=== PATIENT | male | born 1940 | race Caucasian/White ===

== ENCOUNTER → 2016-10-17 | Outpatient (CLI) | payer BC ==
[~2016-10-17] MED LIST: ADVIN50050 INH; ASPEC81 PO; ATOR-22 PO; AVD5 PO; CMBIN INH; CTP2 PO; LSX20 PO; METO50TA7 PO; SODI1TAB PO; TERA1CAP63 PO
--- NOTE | 2016-10-17 10:41 | DIAGNOSTIC IMAGING REPORT ---
CHEST CT WITHOUT CONTRAST CT DOSE: 466.52 mGycm HISTORY: Pulmonary nodule R91.1 Pulmonary nodule, left Patient scheduled on 10/17 @ 10:20 AM, TECHNIQUE: Multiaxial CT images of the chest were performed without contrast. COMPARISON: 07/16/2016 FINDINGS: Variable appearance to the study compared to the prior exam. Pre-existing right middle lobe changes and right paracardiac changes unaltered. The appearance suggests component of bronchiectatic and or atelectatic change at this site. Variable densities medial right base. Interval 1.8 cm slightly irregular density right paravertebral line. Interval density right middle lobe laterally measuring 9.8 mm anterior aspect right middle lobe transaxial image 32. Additional micronodular changes are stable. Baseline emphysematous change is stable. Slight interval nodularity superior aspect left major fissure. Stable low suspicion mediastinal adenopathy. No evidence for progressive [place] change. IMPRESSION: Variable nodularity in both lower lobes as well as left pulmonary apex. 2. Several additional nodules are present, several are stable, and at least one in the right lower lobe diminished. 3. Given this variability, an inflammatory/waxing and waning process is most likely. 4. An additional [address] follow-up is suggested Electronically signed by: Chino Winters M.D. 10/17/2016 10:40 AM Dictated Date/Time: 10/17/2016 10:31 AM
== END | disposition home or self-care (01) ==
LOC: C.CTS 10:10
PROVIDERS: ATTEND Surgery
DX: R91.1 Solitary pulmonary nodule (principal); R91.8 Other nonspecific abnormal finding of lung field